=== PATIENT | male | born 1980 | race Caucasian/White ===

== ENCOUNTER 2017-05-27 05:55 | Emergency (ER) | payer OTHER ==
[~2017-05-27] VITALS: Ht 170.2 cm; Wt 75.0 kg
[2017-05-27 06:07] VITALS: BP 136/75; PULSE 110; RESP 18; TEMP 97.9; O2SAT 99
[2017-05-27] MEDS ORDERED: ADDE20 PO (06:14)
[2017-05-27] MEDS ORDERED: DIPHTH/TETANUS/ACEL PERTUSSIS (BOOSTER) 0.5 ML VIAL/PFS IM ONE (06:15)
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
[2017-05-27 07:29] VITALS: BP 141/90; PULSE 97; RESP 20; O2SAT 100
== END 2017-05-27 07:35 ==
LOC: NEPE 05:55
DX: S09.90XA Unspecified injury of head, initial encounter (principal); S40.811A Abrasion of right upper arm, initial encounter; M54.2 Cervicalgia; F90.9 Attention-deficit hyperactivity disorder, unspecified type; F43.10 Post-traumatic stress disorder, unspecified; F17.210 Nicotine dependence, cigarettes, uncomplicated; V43.92XA Unspecified car occupant injured in collision with other type car in traffic accident, initial encounter; Z23 Encounter for immunization; Z79.899 Other long term (current) drug therapy
CPT/HCPCS: 70450; 72125; 90471; 90715